=== PATIENT | male | born 1975 | race Caucasian/White ===

== ENCOUNTER → 2016-10-27 12:36 | Outpatient (CLI) | payer OTHER | END | disposition home or self-care (01) | LOC: D.RT 12:36 | PROVIDERS: Orthopaedic Surgery | DX: J06.9 Acute upper respiratory infection, unspecified (principal); J44.0 Chronic obstructive pulmonary disease with (acute) lower respiratory infection; M72.2 Plantar fascial fibromatosis; T14.8 Other injury of unspecified body region; B00.9 Herpesviral infection, unspecified ==

== ENCOUNTER → 2016-11-17 13:16 | Outpatient (CLI) | payer OTHER | END | disposition home or self-care (01) | LOC: D.RAD 11-13 13:00 | DX: M13.80 Other specified arthritis, unspecified site (principal) ==